=== PATIENT | male | born 1995 | race Caucasian/White ===

== ENCOUNTER 2021-05-08 07:31 | Emergency (ER) | payer MEDICAID, SELFPAY ==
[2021-05-08 07:32] VITALS: BP 142/104; PULSE 108; RESP 20; TEMP 36.6; O2SAT 99
--- NOTE | 2021-05-08 07:50 | ED.ABDPAIN ---
HPI - Abdominal Pain General Chief Complaint: Abdominal Pain Stated Complaint: ABD PAIN Time Seen by Provider: 05/08/21 07:42 History of Present Illness HPI narrative: 26 yo male w/ h/o IBS, pancreatitis, GERD presents to the ED for abdominal pain. He reports LUQ pain since last night. Assocaited with nausea and vomiting. Denies diarrhea, fever. Related Data Allergies Allergy/AdvReac Type Severity Reaction Status Date / Time adhesive tape Allergy Hives Verified 05/08/21 07:46 iohexol Allergy Hives Verified 05/08/21 07:46 [From contrast - CT, X-RAY] Review of Systems Review of Systems: All systems reviewed & are unremarkable except as noted in HPI and below Constitutional: Constitutional: Denies fever(s) Cardiovascular: Cardiovascular: Denies chest pain Respiratory: Respiratory: Denies dyspnea Gastrointestinal: Gastrointestinal: Reports abdominal pain, Reports bloating, Denies diarrhea, Reports nausea and Reports vomiting Genitourinary: Genitourinary: Denies hematuria and Denies dysuria Neurologic: Denies dizziness and Denies weakness [facility] Past Medical History Medical History (Updated 05/08/21 @ 17:07 by Perez Moore MD) GERD (gastroesophageal reflux disease) IBS (irritable bowel syndrome) Pancreatitis Social History Social History Gender identity (if verbalized by the patient): Male Exam Const: General: healthy appearing, no acute distress and alert Orientation/consciousness: patient oriented x3 HENMT: Head: normal to inspection Neck: Neck: normal visual inspection Resp: Effort & Inspection: normal respiratory effort Auscultation: clear to auscultation bilaterally, no rales, no rhonchi and no wheezes Cardio: Jugular venous distension: no JVD Rate: tachycardic Rhythm: regular rhythm Heart sounds: no murmurs GI: Inspection: non-distended GI Palp: Yes Soft to palpation and Yes Tenderness to palpation present (GI) (LUQ) Skin: General skin exam: normal color Neuro: General: patient oriented x3 and moves all extremities Speech: normal speech Extrem: General: no edema Psych: Appearance: well kempt Affect: normal affect Course Vital Signs Vital signs: Vital Signs Temperature 36.6 C 05/08/21 07:32 Pulse Rate 108 H 05/08/21 07:32 Respiratory Rate 20 05/08/21 07:32 Blood Pressure 142/104 H 05/08/21 07:32 Pulse Oximetry 99 05/08/21 07:32 Temperature 36.6 C 05/08/21 07:32 Pulse Rate 84 05/08/21 12:26 Respiratory Rate 14 05/08/21 12:26 Blood Pressure 132/96 H 05/08/21 12:26 Pulse Oximetry 97 05/08/21 12:26 MDM - Abdominal Pain MDM Narrative Medical decision making narrative: Labs reassuring. Pain improved and tolerating PO. Differential Diagnosis Differential diagnosis: Likely constipation, diverticulitis, gastroenteritis, pancreatitis, small bowel obstruction and other (IBS) Medical Records Attestation: I reviewed the patient's medical records. Lab Data Attestation: I reviewed the patient's lab results. Result diagrams: 05/08/21 07:48 05/08/21 07:48 Labs: Lab Results 05/08/21 05/08/21 05/08/21 Range/Units 07:48 07:48 07:48 WBC 9.5 (4.5-10.0) K/mm3 RBC 5.61 (4.6-6.20) M/mm3 Hgb 17.4 (14.0-18.0) g/dL Hct 50.9 (42.0-52.0) % MCV 90.7 (80-100) fl MCH 31.0 (26-34) pg MCHC 34.2 (32-36) g/dl RDW 12.6 (11.5-14.5) % Plt Count 209 (150-375) k/mm3 MPV 9.7 (7.4-10.4) fl Immature Gran % (Auto) 0.7 H (0-0.5) % Neut % (Auto) 66.9 (45.5-73.1) % Lymph % (Auto) 23.2 (18.3-44.2) % [place] % (Auto) 7.0 (2.6-8.5) % Eos % (Auto) 1.9 (0-4.4) % Baso % (Auto) 0.3 (0.2-1.2) % Lymph # (Auto) 2.21 (0.9-3.2) K/mm3 [place] # (Auto) 0.7 H (0.1-0.6) K/mm3 Eos # (Auto) 0.2 (0-0.3) K/mm3 Baso # (Auto) 0.0 (0.0-0.1) K/mm3 Abs Immat Gran (auto) 0.07 H (0.00-0.031) K/mm3 Absolute Neuts (auto) 6.4 (1.3-6.7) K/mm3 Absolute Nucl
[2021-05-08 07:57] LABS: Basophils Percent Auto 0.3 % (0.2-1.2); Eosinophils Absolute Auto 0.2 K/mm3 (0-0.3); Eosinophils Percent Auto 1.9 % (0-4.4); Hematocrit 50.9 % (42.0-52.0); Hemoglobin 17.4 g/dL (14.0-18.0); Immature Granulocyte Absolute 0.07 K/mm3 (0.00-0.031); Immature Granulocyte Percent A 0.7 % (0-0.5); Lymphocytes Absolute Auto 2.21 K/mm3 (0.9-3.2); Lymphocytes Percent Auto 23.2 % (18.3-44.2); Mean Corpuscular HGB Conc 34.2 g/dl (32-36); Mean Corpuscular Volume 90.7 fl (80-100); Mean Platelet Volume 9.7 fl (7.4-10.4); Monocytes Absolute Auto 0.7 K/mm3 (0.1-0.6); Neutrophils Absolute Auto 6.4 K/mm3 (1.3-6.7); Neutrophils Percent Auto 66.9 % (45.5-73.1); Platelet Count Result 209 k/mm3 (150-375); Red Blood Count 5.61 M/mm3 (4.6-6.20); Red Cell Distribution Width 12.6 % (11.5-14.5); White Blood Count 9.5 K/mm3 (4.5-10.0)
[2021-05-08 08:02] LABS: Add Urine Microscopic? NO; Appearance Urine Clear (Clear); Bilirubin Urine Negative (Negative); Blood Urine Negative (Negative); Color Urine Yellow (Yellow); Glucose Urine UA Negative (Negative); Ketones Urine Negative (Negative); Leukocyte Esterase Ur Negative LEU/UL (Negative); Nitrate Urine Negative (Negative); Protein Urine Negative (Negative); Specific Grav Ur 1.023 (1.001-1.035); Urobilinogen Urine Negative mg/dL (<2.0)
[2021-05-08 08:07] LABS: Alanine Aminotransferase 61 U/L (4-50); Albumin Level 4.7 g/dL (3.5-5.1); Alkaline Phosphatase 57 U/L (38-126); Anion Gap 9 mmol/L (8-16); Aspartate Amino Transferase 30 U/L (17-59); Bilirubin,Total 0.7 mg/dL (0.2-1.3); Blood Urea Nitrogen 13 mg/dL (9-20); Calcium 9.5 mg/dL (8.4-10.2); Carbon Dioxide 22 mmol/L (22-30); Chloride 108 mmol/L (98-107); Estimated CRCL calculation 140 ml/min; Estimated Glomerular Filt Rate > 60; Glucose 116 mg/dL (65-110); Lipase 148 U/L (23-300); Potassium 4.2 mmol/L (3.4-5.0); Sodium 139 mmol/L (137-145)
[2021-05-08] MEDS: PANTOPRAZOLE SODIUM IV 40 MG VIAL IV PUSH (08:07)
[2021-05-08] MEDS: SODIUM CHLORIDE 0.9% IV 1,000 ML 999 ML IV CONT (08:08)
[2021-05-08] MEDS: fentaNYL CITRATE INJ (*CRX) 100 MCG/2 ML VIAL 50 MCG IV PUSH (08:08)
[2021-05-08 08:40] VITALS: BP 128/97; PULSE 85; RESP 16; O2SAT 97
[2021-05-08] MEDS: DICYCLOMINE HCL INJ 20 MG/2 ML VIAL IM (10:41)
[2021-05-08 10:46] VITALS: BP 129/92; PULSE 83; RESP 18; O2SAT 99
[2021-05-08 12:15] VITALS: BP 132/96; PULSE 89; RESP 16; O2SAT 98
[2021-05-08 12:26] VITALS: BP 132/96; PULSE 84; RESP 14; O2SAT 97
== END 2021-05-08 12:27 | disposition home or self-care (01) ==
PROVIDERS: Emergency Provider Emergency Medicine
DX: R10.12 Left upper quadrant pain (principal); K21.9 Gastro-esophageal reflux disease without esophagitis; K58.9 Irritable bowel syndrome, unspecified
CPT/HCPCS: 36415; 80053; 81003; 83690; 85025; 96361; 96372; 96374; 96375; 99284; A9270; C9113; J0500; J3010; J7030

== ENCOUNTER 2021-10-06 06:32 | Emergency (ER) | payer BC, SELFPAY ==
--- NOTE | ~2021-10-06 | XR_ITS ---
EXAMINATION: XR chest 1V portable DATE: 10/06/2021 07:51 INDICATION: Shortness of breath. Chest tightness. TECHNIQUE: A single frontal view of the chest was obtained. COMPARISON: Chest single view 09/02/2021 FINDINGS: The chest demonstrates clear lungs without pneumonia, pleural effusion, or pneumothorax. Th e heart size is normal. IMPRESSION: 1. No acute cardiopulmonary disease. Reviewed, dictated and finalized at location A. [employer] [employer]
[2021-10-06 06:39] VITALS: BP 130/95; PULSE 101; RESP 16; TEMP 36.3; O2SAT 99
--- NOTE | 2021-10-06 07:26 | ECG_ITS ---
Measurements Intervals [place] Rate: 83 P: 52 IL: 148 QRS: -9 QRSD: 96 T: 29 QT: 358 QTc: 422 Interpretive Statements SINUS RHYTHM MINIMAL Q WAVES- HIGH LATERAL LEADS BASELINE ARTIFACT- II, III, AVR, AVF, V1, V3-V6 BORDERLINE ECG Electronically Signed On 10-06-2021 8:32:14 [employer] by Kobi Smith D.O.
--- NOTE | 2021-10-06 07:46 | ED.NAVMDI ---
HPI - Nausea/Vomiting/Diarrhea General Chief complaint: Nausea/Vomiting/Diarrhea Stated complaint: n/v, fatigue, short of breath Time Seen by Provider: 10/06/21 07:05 Source: patient and RN notes reviewed Mode of arrival: ambulatory Limitations: no limitations History of Present Illness HPI Narrative: This is a 26 year old male who presents for evaluation of nausea and vomiting. He denies nausea and vomiting on Tuesday. His emesis is nonbloody, nonbilious. He has been able to tolerate water with vomiting since yesterday afternoon. He is also having intermittent epigastric pain. Patient presented to ER because he has been sleeping and fatigue all day. He states he is also having difficulty taking a deep breath with some shortness of breath. He denies fever, chills. His last bowel movement was this morning and it was normal. He denies cough, sore throat, runny nose. He reports history of gallbladder disease and GI issue, and he has history bile duct resection and cholecystectomy. He recently moved here in January so he has no follow up in area for GI issues. Related Data Allergies Allergy/AdvReac Type Severity Reaction Status Date / Time adhesive tape Allergy Hives Verified 05/08/21 07:46 iohexol Allergy Hives Verified 05/08/21 07:46 [From contrast - CT, X-RAY] Review of Systems Review of Systems: All systems reviewed & are unremarkable except as noted in HPI and below PMFSH Past Medical History Medical History (Updated 10/06/21 @ 10:03 by Ena Barron MD) Bile duct cyst GERD (gastroesophageal reflux disease) IBS (irritable bowel syndrome) Pancreatitis Surgical History Surgical History (Updated 10/06/21 @ 07:52 by Ena Barron MD) Hx of cholecystectomy Social History Social History (Updated 10/06/21 @ 07:52 by Ena Barron MD) Smoking status: Never smoker Alcohol intake: current Substance use: never Gender identity (if verbalized by the patient): Male Exam Const: General: no acute distress and alert Orientation/consciousness: patient oriented x3 Eyes: EOM: EOMs intact bilaterally Chest: Chest palpation & inspection: normal inspection of the chest Resp: Effort & Inspection: normal respiratory effort and no retractions Auscultation: clear to auscultation bilaterally Cardio: Rate: regular rate Rhythm: regular rhythm Heart sounds: no murmurs GI: GI Palp: Yes Soft to palpation, Yes Tenderness to palpation present (GI) (Diffuse), No Guarding due to palpation present (GI) and No Rigid due to palpation Auscultation: normal bowel sounds Skin: General skin exam: normal color Rashes: no rashes Neuro: General: patient oriented x3, moves all extremities and CN's II-XI intact bilaterally Extrem: General: normal to inspection Psych: Mental Status: mental status grossly normal Affect: normal affect Course Reevaluation(s) Reevaluation #1: I discussed with patient and mother that labs are unremarkable. He states he feels better. He is being tested for covid tomorrow since he works at [employer] and mother will test at home with rapid. I discussed how our machine is broken at this time. He is not obviously have signs of covid. Date: 10/06/21 Time: 10:01 Vital Signs Vital signs: Vital Signs Temperature 97.4 F L 10/06/21 06:39 Pulse Rate 101 H 10/06/21 06:39 Respiratory Rate 16 10/06/21 06:39 Blood Pressure 130/95 H 10/06/21 06:39 Pulse Oximetry 99 10/06/21 06:39 Temperature 97.4 F L 10/06/21 06:39 Pulse Rate 85 10/06/21 10:17 Respiratory Rate 16 10/06/21 10:17 Blood Pressure 134/86 10/06/21 10:17 Pulse Oximetry 97 10/06/21 10:17 MDM - Nausea/Vomiting/Diarrhea Lab Data Attestation: I reviewed the patient's lab results. Result diagrams: 10/06/21 07:43 10/06/21 07:43 Labs: Lab Results 10/06/21 10/06/21 10/06/21 Range/Units 07:43 07:43 07:43 WBC 7.3 (4.5-10.0) K/mm3 RBC 5.12 (4.6-6
[2021-10-06 07:49] VITALS: BP 120/88; BP 127/83; PULSE 77; PULSE 94
[2021-10-06 07:50] VITALS: BP 132/92; PULSE 94
[2021-10-06 07:56] LABS: Basophils Percent Auto 0.3 % (0.2-1.2); Eosinophils Absolute Auto 0.2 K/mm3 (0-0.3); Eosinophils Percent Auto 2.3 % (0-4.4); Hematocrit 45.9 % (42.0-52.0); Hemoglobin 16.3 g/dL (14.0-18.0); Immature Granulocyte Absolute 0.03 K/mm3 (0.00-0.031); Immature Granulocyte Percent A 0.4 % (0-0.5); Lymphocytes Absolute Auto 2.04 K/mm3 (0.9-3.2); Lymphocytes Percent Auto 27.8 % (18.3-44.2); Mean Corpuscular HGB Conc 35.5 g/dl (32-36); Mean Corpuscular Hemoglobin 31.8 pg (26-34); Mean Corpuscular Volume 89.6 fl (80-100); Mean Platelet Volume 10.1 fl (7.4-10.4); Monocytes Absolute Auto 0.6 K/mm3 (0.1-0.6); Monocytes Percent Auto 7.6 % (2.6-8.5); Neutrophils Absolute Auto 4.5 K/mm3 (1.3-6.7); Neutrophils Percent Auto 61.6 % (45.5-73.1); Platelet Count Result 196 k/mm3 (150-375); Red Blood Count 5.12 M/mm3 (4.6-6.20); White Blood Count 7.3 K/mm3 (4.5-10.0)
[2021-10-06] MEDS: LACTATED RINGERS 1,000 ML 999 ML IV CONT (07:56)
[2021-10-06] MEDS: ONDANSETRON INJ 4 MG/2 ML VIAL IV PUSH (07:56)
[2021-10-06 08:06] LABS: Lactic Acid Reflex 0.9 mmol/L (0.7-2.1)
[2021-10-06 08:15] LABS: D Dimer 0.29 ug/mL (<0.48)
[2021-10-06 08:17] LABS: Add Urine Microscopic? YES; Appearance Urine Clear (Clear); Bilirubin Urine Negative (Negative); Blood Urine Negative (Negative); Color Urine Yellow (Yellow); Glucose Urine UA Negative (Negative); Ketones Urine Negative (Negative); Leukocyte Esterase Ur Negative LEU/UL (Negative); Mucus Urine Rare /lpf; Nitrate Urine Negative (Negative); Protein Urine Negative (Negative); RBC Urine 0-2 /hpf (0-2); Specific Grav Ur 1.023 (1.001-1.035)
[2021-10-06 08:36] LABS: Alanine Aminotransferase 51 U/L (4-50); Albumin Level 4.4 g/dL (3.5-5.1); Alkaline Phosphatase 45 U/L (38-126); Anion Gap 8 mmol/L (8-16); Aspartate Amino Transferase 38 U/L (17-59); Bilirubin,Total 1.1 mg/dL (0.2-1.3); Blood Urea Nitrogen 11 mg/dL (9-20); Calcium 8.9 mg/dL (8.4-10.2); Carbon Dioxide 25 mmol/L (22-30); Chloride 101 mmol/L (98-107); Estimated CRCL calculation 156 ml/min; Estimated Glomerular Filt Rate > 60; Glucose 120 mg/dL (65-110); Lipase 76 U/L (23-300); Potassium 4.4 mmol/L (3.4-5.0); Sodium 134 mmol/L (137-145)
[2021-10-06 10:17] VITALS: BP 134/86; PULSE 85; RESP 16; O2SAT 97
== END 2021-10-06 10:19 | disposition home or self-care (01) ==
PROVIDERS: Emergency Provider General Practice
DX: R11.2 Nausea with vomiting, unspecified (principal); R10.13 Epigastric pain; K21.9 Gastro-esophageal reflux disease without esophagitis; K58.9 Irritable bowel syndrome, unspecified; R94.31 Abnormal electrocardiogram [ECG] [EKG]
CPT/HCPCS: 36415; 71045; 80053; 81001; 83605; 83690; 85025; 85380; 93005; 96361; 96365; 96375; 99284; J0131; J2405; J7120